=== PATIENT | female | born 1970 | race American Indian/Alaskan Native ===

== ENCOUNTER 2018-09-22 16:53 | Inpatient (IN) | payer OTHER ==
--- NOTE | 2018-09-22 17:29 | Emergency Department Report ---
Blank Doc - Documentation Documentation: 48 y o f presents with cp worsened today while at work left sided radiating to arm takes meds regularly reports cates, nausea, heaviness feeling This initial assessment diagnostic orders/clinical plan/treatment (s) is/Are subject change based on patient's health status, clinical progression and re- assessment by fellow clinical providers in the ED. Further treatment and work-up at subsequent clinical providers discretion. Patient/guardians urged not to elope from their condition may be serious if not clinically assessed and managed. Initial order include: labs xray chest
[2018-09-22 17:55] LABS: Basophils # (Auto) 0.1 K/mm3 (0.0-0.1); Basophils % (Auto) 1.4 % (0.0-1.8); Eosinophils # (Auto) 0.2 K/mm3 (0.0-0.4); Hematocrit 45.8 % (30.3-42.9); Hemoglobin 15.2 gm/dl (10.1-14.3); Lymphocytes # (Auto) 3.1 K/mm3 (1.2-5.4); Lymphocytes % (Auto) 30.7 % (13.4-35.0); Mean Corpuscular HGB Conc 33 % (30-34); Mean Corpuscular Volume 86 fl (79-97); Monocytes % (Auto) 9.7 % (0.0-7.3); Platelet Count 382 K/mm3 (140-440); Red Cell Distribution Width 14.2 % (13.2-15.2)
[2018-09-22 18:08] LABS: BUN/Creatinine Ratio 13; Blood Urea Nitrogen 8 mg/dL (7-17); Calcium 9.3 mg/dL (8.4-10.2); Hemolysis Index 12
--- NOTE | 2018-09-22 19:13 | XRay Report ---
PROCEDURE: XR CHEST ROUTINE 2V TECHNIQUE: PA and lateral chest radiographs were obtained. HISTORY: Chest Pain FINDINGS: Frontal and lateral views of the chest were acquired. The heart is mildly large. There is m ild prominence of central pulmonary markings which could represent mild pulmonary edema, viral pneumo nitis or bronchitis. There is no consolidative infiltrate. IMPRESSION: Prominence of central pulmonary markings, which could represent mild pulmonary edema, vir al pneumonitis or bronchitis This document is electronically signed by Bonifacio Koehler MD., September 22 2018 07:10:59 PM ET
[2018-09-22] MEDS ORDERED: ASPIRIN PO ONE (20:12)
--- NOTE | 2018-09-22 20:12 | Emergency Department Report ---
ED Chest Pain HPI - General Chief Complaint: Chest Pain Stated Complaint: CHEST PAIN/HBP Time Seen by Provider: 09/22/18 17:24 Source: patient Mode of arrival: Ambulatory Limitations: No Limitations - History of Present Illness Initial Comments: 48-year-old female with a past medical history of diabetes hypertension and hypercholesterolemia nausea. Patient reports that chest discomfort it is like heaviness. Radiates down her left arm. She reports that she was at work today when abruptly she started to feel fatigued with heaviness and radiation to the left arm felt dizzy. Patient is on insulin for her diabetes blood pressure medication and cholesterol medication. MD Complaint: chest pain -: days(s) (3) Onset: during rest Pain Location: substernal, left chest Pain Radiation: LUE Severity scale (0 -10): 6 Quality: tightness, heaviness Consistency: constant Improves With: nothing Worsens With: nothing re: nausea, diaphoresis Treatments Prior to Arrival: none Aspirin use within the Past 7 Days: (0) No - Related Data On Oral Contraceptives: No Home Medications Medication Instructions Recorded Confirmed Last Taken Aspirin [Adult Aspirin Regimen] 81 mg PO QDAY 09/23/18 09/23/18 09/22/18 Bupropion HCl [Wellbutrin XL] 300 mg PO QAM 09/23/18 09/23/18 09/22/18 Gabapentin [Neurontin] 300 mg PO QDAY 09/23/18 09/23/18 09/22/18 Insulin Glargine,Hum.rec.anlog 30 unit SQ BID 09/23/18 09/23/18 09/22/18 [Lantus Solostar] Lisinopril/Hydrochlorothiazide 1 tab PO QDAY 09/23/18 09/23/18 09/22/18 [Zestoretic 20-12.5 mg] Lovastatin Tab [Mevacor] 40 mg PO QDAY 09/23/18 09/23/18 09/22/18 Metoprolol [Lopressor TAB] 50 mg PO BID 09/23/18 09/23/18 09/22/18 Multivitamin Tab [Multiple Vitamin 1 tab PO QDAY 09/23/18 09/23/18 09/22/18 TAB (Theragran)] NovoLOG Flexpen 20 units SUB-Q TID 09/23/18 09/23/18 09/22/18 Zolpidem [Ambien] 10 mg PO QHS 09/23/18 09/23/18 09/22/18 metFORMIN [Glucophage] 500 mg PO QDAY 09/23/18 09/23/18 09/22/18 Previous Rx's Medication Instructions Recorded Last Taken Type Furosemide [Lasix] 20 mg PO QDAY #10 tablet 09/23/18 Unknown Rx Pantoprazole Sodium [Protonix] 40 mg PO DAILY #15 09/23/18 Unknown Rx Allergies Allergy/AdvReac Type Severity Reaction Status Date / Time No Known Allergies Allergy Verified 09/22/18 21:45 Heart Score - HEART Score History: Moderately suspicious EKG: Non-specific Age: 45-65 Risk factors: > 3 risk factors or hx of atherosclerotic disease Troponin: 1-3x normal limit HEART Score: 6 ED Review of Systems ROS: Stated complaint: CHEST PAIN/HBP Other details as noted in HPI Comment: All other systems reviewed and negative Cardiovascular: chest pain ED Past Medical Hx - Past Medical History Previous Medical History?: Yes Hx Hypertension: Yes Hx Diabetes: Yes - Surgical History Past Surgical History?: Yes Additional Surgical History: C section - Social History Smoking Status: Never Smoker Substance Use Type: None - Medications Home Medications: Home Medications Medication Instructions Recorded Confirmed Last Taken Type Aspirin [Adult Aspirin Regimen] 81 mg PO QDAY 09/23/18 09/23/18 09/22/18 History Bupropion HCl [Wellbutrin XL] 300 mg PO QAM 09/23/18 09/23/18 09/22/18 History Furosemide [Lasix] 20 mg PO QDAY #10 tablet 09/23/18 Unknown Rx Gabapentin [Neurontin] 300 mg PO QDAY 09/23/18 09/23/18 09/22/18 History Insulin Glargine,Hum.rec.anlog 30 unit SQ BID 09/23/18 09/23/18 09/22/18 History [Lantus Solostar] Lisinopril/Hydrochlorothiazide 1 tab PO QDAY 09/23/18 09/23/18 09/22/18 History [Zestoretic 20-12.5 mg] Lovastatin Tab [Mevacor] 40 mg PO QDAY 09/23/18 09/23/18 09/22/18 History Metoprolol [Lopressor TAB] 50 mg PO BID 09/23/18 09/23/18 09/22/18 History Multivitamin Tab [Multiple Vitamin 1 tab PO QDAY 09/23/18 09/23/18 09/22/18 History TAB (Theragran)] NovoLOG Flexpen 20 units SUB-Q TID 09/23/18 09/23/18 09/22/18 History Pantoprazole Sodium [Protonix] 40 mg PO DAILY #15 granpkt. 09/23/18 Unknown Rx Zolpidem [Ambien] 10 mg PO QHS 09/23/18 09/23/18 09/22/18 History metFORMIN [Glucophage] 500 mg PO QDAY 09/23/18 09/23/18 09/22/18 History ED Physical Exam - General Limitations: No Limitations General appearance: alert, in no apparent distress - Head Head exam: Present: atraumatic, normocephalic - Eye Eye exam: Present: normal appearance - ENT ENT exam: Present: mucous membranes moist - Neck Neck exam: Present: normal inspection - Respiratory Respiratory exam: Present: normal lung sounds bilaterally. Absent: respiratory distress - Cardiovascular Cardiovascular Exam: Present: regular rate, normal rhythm. Absent: systolic murmur, diastolic murmur, rubs, gallop - GI/Abdominal GI/Abdominal exam: Present: soft, normal bowel sounds - Extremities Exam Extremities exam: Present: normal inspection - Back Exam Back exam: Present: normal inspection - Neurological Exam Neurological exam: Present: alert, oriented X3 - Psychiatric Psychiatric exam: Present: normal affect, normal mood - Skin Skin exam: Present: warm, dry, intact, normal color. Absent: rash ED Course Vital Signs 09/22/18 09/22/18 09/22/18 17:25 20:17 21:43 Temperature 97.7 F Pulse Rate 80 67 Respiratory 18 25 H Rate Blood Pressure 174/83 161/75 Blood Pressure [Left] O2 Sat by Pulse 98 98 99 Oximetry 09/22/18 09/22/18 09/22/18 22:00 22:31 23:01 Temperature Pulse Rate 72 79 76 Respiratory 13 16 10 L Rate Blood Pressure 160/82 162/86 162/65 Blood Pressure [Left] O2 Sat by Pulse 92 94 94 Oximetry 09/22/18 09/22/18 09/22/18 23:09 23:30 23:31 Temperature Pulse Rate 71 74 70 Respiratory 22 22 17 Rate Blood Pressure 162/65 135/75 135/75 Blood Pressure [Left] O2 Sat by Pulse 97 94 98 Oximetry 09/22/18 09/22/18 09/23/18 23:41 23:51 00:01 Temperature Pulse Rate 73 84 80 Respiratory 17 10 L 13 Rate Blood Pressure 162/65 131/63 131/63 Blood Pressure [Left] O2 Sat by Pulse 98 Oximetry 09/23/18 09/23/18 09/23/18 00:20 00:23 00:26 Temperature 98.0 F 97.7 F Pulse Rate 73 74 Respiratory 22 Rate Blood Pressure Blood Pressure 164/61 [Left] O2 Sat by Pulse 94 Oximetry JENNI score - Jenni Score Age > 65: (0) No Aspirin use within the Past 7 Days: (0) No 3 or more CAD Risk Factors: (1) Yes 2 or more Angina events in past 24 hrs: (0) No Known CAD with more than 50% Stenosis: (0) No Elevated Cardiac Markers: (0) No ST Deviation Greater than 0.5mm: (0) No JENNI Score: 1 ED Medical Decision Making - Lab Data Result diagrams: 09/23/18 05:12 09/23/18 05:12 - Medical Decision Making Patient has been evaluated by this provider in [facility]. Chest pain protocol has been ordered. Patient has increased risk factors will have patient evaluated for inpatient. Discussed case with Dr. Muir he will talk to the hospitalist for admissions. Critical Care Time: Yes Critical care time in (mins) excluding proc time.: 30 Critical care attestation.: If time is entered above; I have spent that time in minutes in the direct care of this critically ill patient, excluding procedure time. ED Disposition Clinical Impression: Obesity (BMI 30-39.9) Chest pain Qualifiers: Chest pain type: unspecified Qualified Code(s): R07.9 - Chest pain, unspecified Diabetes mellitus Qualifiers: Diabetes mellitus type: type 2 Diabetes mellitus rodent exterminator insulin use: with rodent exterminator use Diabetes mellitus complication status: without complication Qualified Code(s): E11.9 - Type 2 diabetes mellitus without complications; Z79.4 - senior care (current) use of insulin Hypertension Qualifiers: Hypertension type: unspecified Qualified Code(s): I10 - Essential (primary) hypertension Disposition: DC-01 TO HOME OR SELFCARE Is pt being admited?: Yes Does the pt Need Aspirin: Yes Condition: Stable
[2018-09-22] MEDS ORDERED: BACTRIM DS PO ONE (20:13)
--- NOTE | 2018-09-22 21:43 | History and Physical Report ---
History of Present Illness Date of examination: 09/22/18 History of present illness: 48 -year-old woman with a history of hypertension, diabetes, hyperlipidemia comes emergency room with complaints of chest pain located in the epigastric area. She describes a pressure-like sensation that lasted for a few seconds but is now become constant, radiating to the left arm, intensity 5/10, cannot identify exacerbating factors. Admits to nausea, shortness of breath, no diaphoresis or palpitation. She does stress tests one and a half years ago which was negative Review of systems Constitutional: no weight loss, chills, fever Ears, eyes, nose, mouth and throat: no nasal congestion, no nasal discharge, no sinus pressure, no vision change, no red eye. Neck: No neck pain or rigidity. Cardiovascular: no palpitations, +chest pain Respiratory: no cough, shortness of breath Gastrointestinal: no hematochezia, abdominal pain Genitourinary : no frequency , no hematuria Musculoskeletal: no joint swelling or muscle ache Integumentary: no rash, no pruritis Neurological: no parathesias, no focal weakness Endocrine: no cold or heat intolerance, no polyuria or polydipsia Hematologic/Lymphatic: no easy bruising, no easy bleeding, no gland swelling Allergic/Immunologic: no urticaria, no angioedema. PAST MEDICAL HISTORY:hypertension, diabetes, hyperlipidemia PAST SURGICAL HISTORY: , laparotomy, skin graft SOCIAL HISTORY: + alcohol, no drugs, tobacco FAMILY HISTORY: Hypertension Medications and Allergies Allergies Allergy/AdvReac Type Severity Reaction Status Date / Time No Known Allergies Allergy Verified 09/22/18 21:45 Exam - Physical Exam Narrative exam: General Apperance: The patient lying in bed, breathing comfortable HEENT: Normocephalic, atraumatic. Pupils equally round and reactive to light, EOMI, no sclericterus or JVD or thyromegaly or nodule. , no carotid bruit, mucous membranes moist, no exudate or erythema Heart: S1-S2, regular is rhythm Lungs: Clear to auscultation bilaterally, breathing comfortable Abdomen: Positive bowel sounds, soft, nontender, nondistended, no organomegaly Extremities: No edema cyanosis clubbing Skin: no rash, nodule, warm and dry Neuro: cranial nerves 2-12 intact, speech is fluent, motor/sensory intact - Constitutional Vitals: Temp Pulse Resp BP Pulse Ox 97.7 F 80 18 174/83 98 09/22/18 17:25 09/22/18 17:25 09/22/18 17:25 09/22/18 17:25 09/22/18 20:17 Results - Labs CBC & Chem 7: 09/22/18 17:34 09/22/18 17:34 Labs: Abnormal lab results 09/22/18 09/22/18 Range/Units 17:34 17:34 RBC 5.30 H (3.65-5.03) M/mm3 Hgb 15.2 H (10.1-14.3) gm/dl Hct 45.8 H (30.3-42.9) % Coffee % (Auto) 9.7 H (0.0-7.3) % Coffee # 1.0 H (0.0-0.8) K/mm3 Creatinine 0.6 L (0.7-1.2) mg/dL Glucose 152 H (65-100) mg/dL - Imaging and Cardiology EKG: image reviewed Chest x-ray: report reviewed Assessment and Plan Assessment Chest pain, rule out ACS Hypertension Diabetes Hyperlipidemia Plan Admit to medicine Check cardiac enzymes, stress test, IV morphine, asa Fingersticks, initiate insulin sliding scale DVT prophylaxis
[2018-09-22] MEDS ORDERED: MORPHINE IV PRN (22:41)
[2018-09-22] MEDS ORDERED: TYLENOL PO PRN (22:41)
[2018-09-22] MEDS ORDERED: SODIUM CHLORIDE FLUSH SYRINGE 10 ML IV PRN (22:41)
[2018-09-22] MEDS ORDERED: ZOFRAN IV PRN (22:41)
[2018-09-22] MEDS ORDERED: APRESOLINE IV PRN (23:42)
[2018-09-22] MEDS ORDERED: D50W (25GM) Syringe IV PRN (23:43)
[2018-09-23] MEDS ORDERED: AMBIEN PO PRN (02:06)
[2018-09-23 03:58] LABS: Creatine Kinase MB 2.4 ng/mL (0.0-4.0)
[2018-09-23 05:53] LABS: Basophils # (Auto) 0.1 K/mm3 (0.0-0.1); Basophils % (Auto) 1.2 % (0.0-1.8); Eosinophils # (Auto) 0.2 K/mm3 (0.0-0.4); Eosinophils % (Auto) 2.1 % (0.0-4.3); Hematocrit 45.3 % (30.3-42.9); Hemoglobin 15.3 gm/dl (10.1-14.3); Lymphocytes # (Auto) 3.4 K/mm3 (1.2-5.4); Lymphocytes % (Auto) 35.9 % (13.4-35.0); Mean Corpuscular HGB Conc 34 % (30-34); Mean Corpuscular Volume 86 fl (79-97); Platelet Count 334 K/mm3 (140-440); Red Blood Count 5.24 M/mm3 (3.65-5.03); Red Cell Distribution Width 13.9 % (13.2-15.2)
[2018-09-23 06:18] LABS: BUN/Creatinine Ratio 14; Blood Urea Nitrogen 10 mg/dL (7-17); Hemolysis Index 15
[2018-09-23 06:42] LABS: Creatine Kinase MB 2.1 ng/mL (0.0-4.0)
[2018-09-23] MEDS: HumaLOG SUB-Q SCH ×2 (08:06→12:19)
[2018-09-23] MEDS ORDERED: LEXISCAN IV ONE ×2 (08:15→08:21)
--- NOTE | 2018-09-23 08:27 | Progress Note ---
Hospitalist Physical - Constitutional Vitals: Temp Pulse Resp BP Pulse Ox 97.9 F 58 L 18 132/71 98 09/23/18 05:05 09/23/18 05:05 09/23/18 05:05 09/23/18 05:05 09/23/18 05:05 Results - Labs CBC & Chem 7: 09/23/18 05:12 09/23/18 05:12 Labs: Laboratory Last Values WBC 9.4 K/mm3 (4.5-11.0) 09/23/18 05:12 RBC 5.24 M/mm3 (3.65-5.03) H 09/23/18 05:12 Hgb 15.3 gm/dl (10.1-14.3) H 09/23/18 05:12 Hct 45.3 % (30.3-42.9) H 09/23/18 05:12 MCV 86 fl (79-97) 09/23/18 05:12 MCH 29 pg (28-32) 09/23/18 05:12 MCHC 34 % (30-34) 09/23/18 05:12 RDW 13.9 % (13.2-15.2) 09/23/18 05:12 Plt Count 334 K/mm3 (140-440) 09/23/18 05:12 Lymph % (Auto) 35.9 % (13.4-35.0) H 09/23/18 05:12 Davie % (Auto) 11.0 % (0.0-7.3) H 09/23/18 05:12 Eos % (Auto) 2.1 % (0.0-4.3) 09/23/18 05:12 Baso % (Auto) 1.2 % (0.0-1.8) 09/23/18 05:12 Lymph # 3.4 K/mm3 (1.2-5.4) 09/23/18 05:12 Davie # 1.0 K/mm3 (0.0-0.8) H 09/23/18 05:12 Eos # 0.2 K/mm3 (0.0-0.4) 09/23/18 05:12 Baso # 0.1 K/mm3 (0.0-0.1) 09/23/18 05:12 Seg Neutrophils % 49.8 % (40.0-70.0) 09/23/18 05:12 Seg Neutrophils # 4.7 K/mm3 (1.8-7.7) 09/23/18 05:12 D-Dimer 147.27 ng/mlDDU (0-234) 09/22/18 17:34 Sodium 140 mmol/L (137-145) 09/23/18 05:12 Potassium 3.9 mmol/L (3.6-5.0) 09/23/18 05:12 Chloride 102.3 mmol/L (98-107) 09/23/18 05:12 Carbon Dioxide 24 mmol/L (22-30) 09/23/18 05:12 Anion Gap 18 mmol/L 09/23/18 05:12 BUN 10 mg/dL (7-17) 09/23/18 05:12 Creatinine 0.7 mg/dL (0.7-1.2) 09/23/18 05:12 Estimated GFR > 60 ml/min 09/23/18 05:12 BUN/Creatinine Ratio 14 % 09/23/18 05:12 Glucose 135 mg/dL (65-100) H 09/23/18 05:12 POC Glucose 103 (70-105) 09/23/18 07:48 Calcium 9.0 mg/dL (8.4-10.2) 09/23/18 05:12 Total Creatine Kinase 152 units/L (30-135) H 09/23/18 05:12 CK-MB (CK-2) 2.1 ng/mL (0.0-4.0) 09/23/18 05:12 CK-MB (CK-2) Rel Index 1.3 (0-4) 09/23/18 05:12 Troponin T < 0.010 ng/mL (0.00-0.029) 09/23/18 05:12 Lipase 21 units/L (13-60) 09/22/18 17:34
[2018-09-23] MEDS ORDERED: LOVASTATIN 40 MG PO SCH (10:00)
[2018-09-23] MEDS ORDERED: ASPIRIN PO SCH (10:00)
[2018-09-23] MEDS ORDERED: LOPRESSOR PO SCH (10:00)
[2018-09-23] MEDS ORDERED: LOVENOX SUB-Q SCH ×2 (10:00)
[2018-09-23] MEDS ORDERED: SODIUM CHLORIDE FLUSH SYRINGE 10 ML IV SCH (10:00)
[2018-09-23] MEDS ORDERED: ZESTRIL PO SCH (10:00)
[2018-09-23] MEDS ORDERED: NON-FORMULARY (Lisinopril/Hydrochlorothiazide [Zestoretic 20-12.5 Mg] 1 TAB) PO SCH (10:00)
[2018-09-23] MEDS ORDERED: HCTZ PO SCH (10:00)
[2018-09-23] MEDS ORDERED: WELLBUTRIN XL PO SCH (10:00)
[2018-09-23] MEDS ORDERED: NON-FORMULARY (Bupropion Hcl [Wellbutrin Xl] 300 MG) PO SCH (10:00)
[2018-09-23] MEDS ORDERED: LANTUS SUB-Q SCH (10:00)
[2018-09-23] MEDS ORDERED: NON-FORMULARY (Insulin Glargine,Hum.Rec.Anlog [Lantus Solostar] 30 UNIT) SQ SCH (10:00)
[2018-09-23] MEDS ORDERED: GLUCOPHAGE PO SCH (10:00)
[2018-09-23] MEDS ORDERED: NEURONTIN PO SCH (10:00)
[2018-09-23 11:44] VITALS: BP 135/74
[2018-09-23] MEDS ORDERED: PNEUMOVAX 23 IM ONE (12:00)
[2018-09-23] MEDS ORDERED: AFLURIA QUAD 2018-2019 SYRINGE IM ONE (12:00)
--- NOTE | 2018-09-23 13:35 | Discharge Summary ---
Providers - Providers Date of Admission: 09/22/18 21:42 Date of discharge: 09/23/18 Attending physician: JONY ALMAGUER Primary care physician: ARLETH WAN DO Hospitalization Reason for admission: left-sided chest pain Condition: Stable Pertinent studies: Stress test; preliminary report, by cardiology, normal study Chest x-ray; prominence of central pulmonary markings which could represent mild pulmonary edema bilateral pneumonitis or bronchitis[patient does not have pulmonary symptoms, low dose Lasix description was given for a few days for her possible pulmonary edema at discharge] Patient will follow up with her primary care physician for further evaluation of this abnormal findings on chest x-ray Hospital course: Morbidly obese 48-year-old -[place] female patient with significant history of hypertension and diabetes mellitus dyslipidemia was admitted through emergency room with atypical chest pain The patient was admitted symptomatically managed subsequently stress test was obtained in view of her multiple risk factors, including age- appropriate cardiology stress test negative for reversible ischemia Main results symptomatic management was continued and patient's symptoms significantly improved atypical chest pain probably secondary to gastroesophageal reflux disease patient was started on Protonix, the significance improvement, Today she is comfortable no new complaints vital signs stable physical examination at discharge is unremarkable, Advised diet modification and exercise as tolerated and weight reduction Advised to follow with primary care physician and if she has recurrent chest pain she may need extensive outpatient cardiac evaluation or advised to go to emergency room for further evaluation and management, Patient verbalized understanding patient is stable at discharge Discharge diagnosis; --Atypical chest pain; probably noncardiac, negative stress test --GERD; probably the cause of chest pain, advised Protonix --Type 2 diabetes mellitus --Hypertension --Dyslipidemia --Obesity; BMI 39.3 Disposition: [place]- TO HOME OR SELFCARE Time spent for discharge: 31 min Core Measure Documentation - Palliative Care Palliative Care/ Comfort Measures: Not Applicable - Core Measures Any of the following diagnoses?: none Exam - Constitutional Vitals: Temp Pulse Resp BP Pulse Ox 98.0 F 78 16 135/74 97 09/23/18 08:09 09/23/18 12:34 09/23/18 08:09 09/23/18 12:34 09/23/18 11:42 General appearance: Present: no acute distress, well-nourished - EENT Eyes: Present: PERRL, EOM intact - Neck Neck: Present: supple, normal ROM - Respiratory Respiratory effort: normal Respiratory: bilateral: diminished, negative: rales, rhonchi, wheezing - Cardiovascular Rhythm: regular Heart Sounds: Present: S1 & S2 - Extremities Extremities: no ischemia, No edema - Abdominal General gastrointestinal: Present: soft, non-tender, non-distended, normal bowel sounds - Integumentary Integumentary: Present: clear, warm - Musculoskeletal Musculoskeletal: strength equal bilaterally - Psychiatric Psychiatric: appropriate mood/affect, cooperative - Neurologic Neurologic: CNII-XII intact, moves all extremities Plan Activity: advance as tolerated Diet: low salt, diabetic Additional Instructions: If you have recurrent chest pain or shortness of breath contact M.D./he may need extensive outpatient cardiac workup, or go to emergency room. Advised diet modification, exercise as tolerated and weight reduction when medically stable Follow up with: ARLETH WAN DO [Primary Care Provider] - 3-5 Days Prescriptions: Furosemide [Lasix] 20 mg PO QDAY #10 tablet Pantoprazole Sodium [Protonix] 40 mg PO DAILY #15 sae.
[2018-09-23] MEDS ORDERED: PRAVACHOL PO SCH (22:00)
--- NOTE | 2018-09-26 15:22 | Treadmill Report ---
INDICATION: Chest pain. ORDERING PHYSICIAN: Dana Schroeder MD FINDINGS: There is no scintigraphic evidence of myocardial ischemia. The left ventricle is normal in size and systolic function. The left ventricular ejection fraction measured at 63%. Normal wall motion and wall thickening noted on gated imaging. CONCLUSION: Normal perfusion scan. JOB# [id number] ALVARO/NTS
== END 2018-09-23 16:19 | disposition home or self-care (01) | DRG 392 ==
LOC: ED 16:53 → 4A 21:42
PROVIDERS: ADMIT Internal Medicine; ATTEND Internal Medicine
PROC: 3E0234Z Introduction of Serum, Toxoid and Vaccine into Muscle, Percutaneous Approach (ICD-10-PCS; principal; 2018-09-23)
DX: K21.9 Gastro-esophageal reflux disease without esophagitis (principal); E11.9 Type 2 diabetes mellitus without complications; I10 Essential (primary) hypertension; E66.01 Morbid (severe) obesity due to excess calories; E78.00 Pure hypercholesterolemia, unspecified; E78.5 Hyperlipidemia, unspecified; Z82.49 Family history of ischemic heart disease and other diseases of the circulatory system; Z68.39 Body mass index [BMI] 39.0-39.9, adult; Z23 Encounter for immunization; Z79.84 Long term (current) use of oral hypoglycemic drugs
CPT/HCPCS: 36415; 71046; 78452; 80048; 82550; 82553; 82962; 83690; 84484; 85025; 85379; 90686; 90732; 93005; 93010; 93017; G0378; A9502; J1650; J1815; J2785